=== PATIENT | male | born 1990 | race Caucasian/White ===

== ENCOUNTER 2023-10-09 17:12 | Outpatient (CLI) | payer OTHER | END 2023-10-09 17:13 | disposition critical access hospital (66) | LOC: EMS 17:12 | DX: F10.10 Alcohol abuse, uncomplicated (principal); R11.0 Nausea; R15.9 Full incontinence of feces; R00.0 Tachycardia, unspecified | CPT/HCPCS: A0425; A0427 ==

== ENCOUNTER 2023-10-09 17:29 | Inpatient (IN) | payer OTHER ==
--- NOTE | 2023-10-09 17:38 | ED Physician Documentation ---
History of Present Illness - Stated complaint Stated Complaint: DEHYDRATED - Chief complaint Chief Complaint: General - History obtained from History obtained from: Patient, EMS - History of Present Illness Pain level max: 0 Pain level now: 0 - Additonal information Additional information: 33-year-old male presents to the emergency department stating that he drank heavily last night. has a longstanding history of alcoholism. He is active [employer]. He states that the [employer] command is talked him about detox but he does not want to go to detox. He states he is planning on leaving the [employer] within the next 2 weeks. He is not suicidal or homicidal. No head injury. No neck or back pain. No abdominal pain. has a history of fatty liver. He states he drank "9 shots of bourbon last night". Patient states that he did throw up once last night but there is no blood in the emesis. He states that he has had intermittent bright red blood in his stool for several years. He has never had a colonoscopy or an endoscopy. No history of varices. He states that he has been told he has "fatty liver". Does not have any alcoholic liver disease that he Is aware of. Review of Systems Constitutional: denies: Fever, Chills Throat: denies: Sore throat Respiratory: denies: Cough GI: denies: Vomiting, Diarrhea Skin: denies: Rash Musculoskeletal: denies: Neck pain, Back pain Neurologic: denies: Headache PD PAST MEDICAL HISTORY - Past Medical History Past Medical History: Yes Psych: Depression, Anxiety - Present Medications Home Medications: Ambulatory Orders Medication Instructions Recorded Confirmed 147/Iron/Folic Acid 1 tab PO DAILY 10/09/23 10/09/23 [Ziphex Tablet] Venlafaxine [Effexor] 1 tab PO DAILY 10/09/23 10/09/23 - Allergies Allergies/Adverse Reactions: Allergies Allergy/AdvReac Type Severity Reaction Status Date / Time No Known Drug Allergies Allergy Verified 10/09/23 18:23 - Living Situation Living Situation: reports: With family Living Arrangement: reports: At home - Social History Does the pt drink ETOH?: Yes Does the pt have substance abuse?: No - Family History Family history: reports: Non contributory PD ED PE NORMAL - Vitals Vital signs reviewed: Yes - General General: Alert and oriented X 3, No acute distress, Other (Patient is pale appearing, bruises over the bilateral knees) - HEENT HEENT: Moist mucous membranes, Other (Scleral icterus, jaundiced) - Neck Neck: Supple, no meningeal sign - Cardiac Cardiac: Other (tachycardic) - Respiratory Respiratory: No respiratory distress, Clear bilaterally - Abdomen Abdomen: Soft, Non tender, Non distended - Rectal Rectal: Other (light brown stool, small amount of BRB) - Derm Derm: Warm and dry - Extremities Extremities: No edema, No calf tenderness / cord, Other (There is bruising on the bilateral thighs and knees. No tenderness over the ribs bilaterally. Normal range of motion of all major joints without pain.) - Neuro Neuro: Alert and oriented X 3, speech therapy assistant 2-12 intact, No motor deficit, No sensory deficit, Normal speech Eye Opening: Spontaneous Verbal: Oriented Results - Vitals Vitals: Vital Signs - 24 hr 10/09/23 10/09/23 10/09/23 17:34 19:28 20:20 Temperature 37.5 C 37.2 C Heart Rate 135 H 121 H Heart Rate [ 125 H Monitoring electrodes] Respiratory 18 18 18 Rate Blood Pressure 118/83 H 113/80 Blood Pressure [Right Brachial artery] O2 Saturation 99 99 97 10/09/23 10/09/23 10/09/23 20:38 20:39 21:00 Temperature 37.1 C 37.1 C Heart Rate 130 H Heart Rate [ 132 H 132 H Monitoring electrodes] Respiratory 16 16 25 H Rate Blood Pressure 121/69 Blood Pressure 121/99 H 121/99 H [Right Brachial artery] O2 Saturation 100 100 97 Oxygen O2 Source Room air - Labs Labs: Microbiology 10/09/23 18:30 Occult Blood - Final Stool Laboratory Tests 10/09/23 10/09/23 10/09/23 17:56 17:56 17:56 WBC 6.6 RBC 2.35 L Hgb 5.4 L* Hct 17.7 L* MCV 75.3 L MCH 23.0 L MCHC 30.5 L RDW 20.3 H Plt Count 66 L MPV 10.5 Neut # (Auto) 4.4 Lymph # (Auto) 1.0 L [place] # (Auto) 0.8 Eos # (Auto) 0.0 Baso # (Auto) 0.1 Absolute Nucleated RBC 0.02 Nucleated RBC % 0.3 Platelet Estimate DECREASED (<130,000) Platelet Morphology NORMAL APPEARANCE RBC Morph Micro Appear 2+ HYPOCHROMASIA PT 18.3 H INR 1.7 H Sodium 134 L Potassium 3.5 Chloride 100 L Carbon Dioxide 20 L Anion Gap 14.0 H BUN 10 Creatinine 0.6 Estimated GFR (MDRD) 155 Glucose 83 Calcium 7.1 L Phosphorus Magnesium Total Bilirubin 5.7 H AST 118 H ALT 21 Alkaline Phosphatase 235 H Total Protein 5.2 L Albumin 2.8 L Globulin 2.4 Albumin/Globulin Ratio 1.2 Lipase 231 H Urine Color Urine Clarity Urine pH Ur Specific [place] Urine Protein Urine Glucose (UA) Urine Ketones Urine Occult Blood Urine Nitrite Urine Bilirubin Urine Urobilinogen Ur Leukocyte Esterase Ur Microscopic Review Urine Culture Comments Urine Opiates Screen Ur Buprenorphine Scrn Ur Oxycodone Screen Urine Methadone Screen Ur Barbiturates Screen Ur Tricyclics Screen Ur Phencyclidine Scrn Ur Amphetamine Screen U Methamphetamines Scrn U Benzodiazepines Scrn Urine Cocaine Screen U Cannabinoids Screen Ur Drug Screen Comment Ethyl Alcohol 451.0 Blood Type Blood Type Recheck Antibody Screen Crossmatch IS Only 10/09/23 10/09/23 10/09/23 17:56 17:56 18:37 WBC RBC Hgb Hct MCV MCH MCHC RDW Plt Count MPV Neut # (Auto) Lymph # (Auto) [place] # (Auto) Eos # (Auto) Baso # (Auto) Absolute Nucleated RBC Nucleated RBC % Platelet Estimate Platelet Morphology RBC Morph Micro Appear PT INR Sodium Potassium Chloride Carbon Dioxide Anion Gap BUN Creatinine Estimated GFR (MDRD) Glucose Calcium Phosphorus 2.8 Magnesium 1.3 L Total Bilirubin AST ALT Alkaline Phosphatase Total Protein Albumin Globulin Albumin/Globulin Ratio Lipase Urine Color Urine Clarity Urine pH Ur Specific [place] Urine Protein Urine Glucose (UA) Urine Ketones Urine Occult Blood Urine Nitrite Urine Bilirubin Urine Urobilinogen Ur Leukocyte Esterase Ur Microscopic Review Urine Culture Comments Urine Opiates Screen Ur Buprenorphine Scrn Ur Oxycodone Screen Urine Methadone Screen Ur Barbiturates Screen Ur Tricyclics Screen Ur Phencyclidine Scrn Ur Amphetamine Screen U Methamphetamines Scrn U Benzodiazepines Scrn Urine Cocaine Screen U Cannabinoids Screen Ur Drug Screen Comment Ethyl Alcohol Blood Type O POSITIVE Blood Type Recheck O POSITIVE Antibody Screen NEGATIVE Crossmatch IS Only See Detail 10/09/23 20:40 WBC RBC Hgb Hct MCV MCH MCHC RDW Plt Count MPV Neut # (Auto) Lymph # (Auto) [place] # (Auto) Eos # (Auto) Baso # (Auto) Absolute Nucleated RBC Nucleated RBC % Platelet Estimate Platelet Morphology RBC Morph Micro Appear PT INR Sodium Potassium Chloride Carbon Dioxide Anion Gap BUN Creatinine Estimated GFR (MDRD) Glucose Calcium Phosphorus Magnesium Total Bilirubin AST ALT Alkaline Phosphatase Total Protein Albumin Globulin Albumin/Globulin Ratio Lipase Urine Color DARK YELLOW Urine Clarity CLEAR Urine pH 6.5 Ur Specific [place] 1.015 Urine Protein NEGATIVE Urine Glucose (UA) NEGATIVE Urine Ketones 40 H Urine Occult Blood NEGATIVE Urine Nitrite NEGATIVE Urine Bilirubin MODERATE H Urine Urobilinogen 4 H Ur Leukocyte Esterase NEGATIVE Ur Microscopic Review NOT INDICATED Urine Culture Comments NOT INDICATED Urine Opiates Screen NEGATIVE Ur Buprenorphine Scrn NEGATIVE Ur Oxycodone Screen NEGATIVE Urine Methadone Screen NEGATIVE Ur Barbiturates Screen NEGATIVE Ur Tricyclics Screen NEGATIVE Ur Phencyclidine Scrn NEGATIVE Ur Amphetamine Screen NEGATIVE U Methamphetamines Scrn NEGATIVE U Benzodiazepines Scrn NEGATIVE Urine Cocaine Screen NEGATIVE U Cannabinoids Screen NEGATIVE Ur Drug Screen Comment CUTOFF CONC BELOW: Ethyl Alcohol Blood Type Blood Type Recheck Antibody Screen Crossmatch IS Only - Rads (name of study) Head CT Relevant Findings:: Final report received, See rad report CT abdomen pelvis Relevant Findings:: Final report received, See rad report PD Medical Decision Making - ED course Complexity details: reviewed results, re-evaluated patient, considered differential, d/w patient, d/w supervisor home energy consultant ED course: Discussed case with general surgery, Dr. Schmitz, she will follow along, can plan to scope once he has been medically stable. Will need blood transfusions and monitoring and potential help through alcohol withdrawal prior to endoscopy/colonoscopy. Recommend admission to the hospitalist. Head CT does not show any acute abnormalities. Abdomen pelvis CT show abdominal varices but no esophageal varices. He has not had any bleeding over several hours in the emergency department. Does appear to have colitis on CT, this is consistent with his history of blood in the stool over several years. Unclear if the anemia is secondary to his alcoholism versus a colitis such as ulcerative colitis. No fevers. No chills. No recent travel. No antibiotics. Blood transfusion started in the emergency department. Discussed the case with the nighttime hospitalist who accepts. This document was made in part using voice recognition software. While efforts are made to proofread this document, sound alike and grammatical errors may occur. Departure - Departure Disposition: 66 [facility] DC/Xfer Clinical Impression: Alcoholism, Symptomatic anemia, Colitis Anemia Qualifiers: Anemia type: unspecified type Qualified Code(s): D64.9 - Anemia, unspecified Ascites Qualifiers: Ascites type: other type Qualified Code(s): R18.8 - Other ascites Condition: Stable Discharge Date/Time: 10/09/23 21:45
[2023-10-09 18:07] LABS: BASOPHILS # (AUTO) 0.1 10^3/uL (0.0-0.1); BASOPHILS % (AUTO) 1.4 %; LYMPHOCYTES % (AUTO) 15.1 %; MEAN CORPUSCULAR HGB CONC 30.5 g/dL (32.0-36.0); MEAN CORPUSCULAR VOLUME 75.3 fL (80.0-94.0); MEAN PLATELET VOLUME 10.5 fL (7.4-11.4); MONOCYTES # (AUTO) 0.8 10^3/uL (0.0-1.0); MONOCYTES % (AUTO) 12.3 %; NEUTROPHILS # (AUTO) 4.4 10^3/uL (1.5-6.6); NEUTROPHILS % (AUTO) 66.8 %; NRBC ABSOLUTE COUNT (AUTO) 0.02 x10^3/uL; NUCLEATED RED BLOOD CELLS AUTO 0.3 /100WBC; PLT - PLATELET COUNT 66 10^3/uL (130-450); RED BLOOD COUNT 2.35 10^6/uL (4.70-6.10); RED CELL DISTRIBUTION WIDTH 20.3 % (12.0-15.0); WHITE BLOOD COUNT 6.6 x10^3/uL (4.8-10.8)
[2023-10-09 18:09] LABS: HCT - HEMATOCRIT 17.7 % (42.0-52.0); HGB - HEMOGLOBIN 5.4 g/dL (14.0-18.0)
[2023-10-09 18:20] LABS: ALBUMIN 2.8 g/dL (3.2-5.5); ALBUMIN/GLOBULIN RATIO 1.2 (1.0-2.2); BILIRUBIN,TOTAL 5.7 mg/dL (0.2-1.0); CALCIUM 7.1 mg/dL (8.5-10.3); CREATININE 0.6 mg/dL (0.6-1.3); POTASSIUM 3.5 mmol/L (3.5-4.5); TOTAL PROTEIN 5.2 g/dL (6.4-8.9)
[2023-10-09 18:23] LABS: INR 1.7 (0.8-1.2); PT - PROTHROMBIN TIME 18.3 secs (9.9-12.6)
[2023-10-09] MEDS: SODIUM CHLORIDE 0.9% 1,000 ML IV STA (18:24)
[2023-10-09] MEDS: PANTOPRAZOLE 40 MG VIAL IVP STA (18:31)
[2023-10-09] MEDS: ONDANSETRON 4 MG/2 ML VIAL IVP STA (18:31)
[2023-10-09 19:01] LABS: PLATELET ESTIMATE, MANUAL DECREASED (<130,000) (NORMAL); PLATELET MORPHOLOGY NORMAL APPEARANCE (NORMAL)
[2023-10-09] MEDS ORDERED: iohexoL-300 100 ML VIAL ONE (19:20)
[2023-10-09] MEDS ORDERED: MAGNESIUM SULFATE 1 GM/2 ML VIAL ONE (19:26)
[2023-10-09] MEDS ORDERED: THIAMINE 100 MG/1 ML 2 ML MDV ONE (19:26)
[2023-10-09] MEDS ORDERED: FOLIC ACID 5 MG/1 ML 10ML MDV ONE (19:26)
[2023-10-09 19:31] LABS: MAGNESIUM 1.3 mg/dL (1.7-2.3); PHOSPHORUS 2.8 mg/dL (2.5-5.0)
--- NOTE | 2023-10-09 19:37 | CT Report ---
PROCEDURE: Head WO INDICATIONS: fall TECHNIQUE: Noncontrast 4.5 mm thick angled axial sections acquired from the foramen magnum to the vertex. For r adiation dose reduction, the following was used: automated exposure control, adjustment of mA and/or kV according to patient size. COMPARISON: None. FINDINGS: Image quality: Excellent. CSF spaces: Basal cisterns are patent. No extra-axial fluid collections. Ventricles are normal in size and shape. Brain: No midline shift. No intracranial masses or hemorrhage. Lynn-white matter interface is norm al. Skull and face: Calvarium and visualized facial bones are intact, without suspicious lesions. Sinuses: Mild bilateral maxillary sinus mucosal thickening. Other visualized paranasal sinuses and ma stoids are clear. IMPRESSION: No acute intracranial pathology. No acute calvarial fracture. Reviewed by: Bob Pressley MD on 10/09/2023 7:35 PM PDT Approved by: Bob Pressley MD on 10/09/2023 7:35 PM PDT Station ID: [id number]
[2023-10-09] MEDS: PHYTONADIONE 10 MG/ML AMP SUBQ STA (19:38)
[2023-10-09] MEDS: THIAMINE INJ 100 MG, MAGNESIUM SULFATE 2 GM, MULTIVITAMIN 10 ML, FOLIC ACID INJ 1 MG in... IV STA (19:40)
[2023-10-09] MEDS: iohexoL-300 100 ML VIAL IVP ONE (19:41)
[2023-10-09] MEDS: METOCLOPRAMIDE 10 MG/2 ML VIAL IVP STA (20:24)
--- NOTE | 2023-10-09 20:45 | CT Report ---
PROCEDURE: Abdomen/Pelvis W INDICATIONS: epigastric abd pain CONTRAST: 100ml [id number] TECHNIQUE: After the administration of intravenous contrast, a CT scan of the abdomen and pelvis was performed. Images were recorded and evaluated at appropriate window settings. Reformats: coronal and sagittal. F or radiation dose reduction, the following was used: automated exposure control, adjustment of mA and /or kV according to patient size. COMPARISON: None. FINDINGS: Image quality: Diagnostic. Lower chest: There is a small right pleural effusion with associated compressive atelectasis. Left giovanni ng is clear. Small hiatal hernia. Heart size is normal. Age-indeterminate nondisplaced fracture of th e posterior right 10th rib. Liver: No solid mass. Moderate diffuse hepatic steatosis. Gallbladder: Mild gallbladder wall distention. Small radiodense gallstone noted. There is fluid withi n the gallbladder fossa likely extension of adjacent ascites. Biliary tree: No intrahepatic or extrahepatic dilation, accounting for age. Spleen: No splenomegaly. There is heterogeneous appearance of the spleen near the anterior, superior margin as well as the posterior midportion slightly more than expected given adjacent osseous structu res. Given history of fall, splenic trauma not excluded. No evidence for active extravasation. Surrou nding ascites measures simple fluid attenuation. Pancreas: No pancreatic ductal dilation. No evidence for traumatic injury. Adrenals: No adrenal nodule. Kidneys and ureters: No hydronephrosis. No renal cystic lesion which requires follow up. No solid mas s. Stomach, bowel and peritoneum: No gastric or small bowel dilation. There is circumferential wall thic kening involving the ascending, transverse, and proximal descending colon. The sigmoid colon and rect um appeared normal in wall thickness despite similar degree of distention. No evidence for small shelli l obstruction. Moderate volume ascites scattered throughout the abdomen measuring simple fluid attenu ation. Lymph nodes: No central or retroperitoneal adenopathy. Vessels: No infrarenal aortic aneurysm. Patent portal vein. Multiples periportal and periumbilical va rices are present. PELVIS Reproductive organs: Unremarkable. Bladder: No abnormal wall thickening, accounting for underdistention. Pelvic lymph nodes: No pelvic adenopathy by size criteria. Bones: No aggressive osseous abnormality. No acute compression fractures. Other: No significant ventral or inguinal hernia. Diffuse anasarca. IMPRESSION: 1. Moderate hepatic steatosis. 2. Moderate volume ascites scattered throughout the abdomen. This measures simple fluid attenuation. 3. Multiple abdominal varices. No other findings for portal hypertension. 4. Distended gallbladder with wall thickening and gallstone. Recommend clinical correlation for acute cholecystitis. 5. Areas of heterogeneity involving the anterior, superior margin of the spleen as well as the sales promoter ior mid spleen suspicious for possible low-grade splenic laceration given history of trauma. No evide nce to suggest active extravasation as the surrounding ascites measures simple fluid attenuation. 6. Circumferential wall thickening of the ascending, transverse and proximal descending colon suggest naveen of colitis either infectious or inflammatory etiology. 7. Small right pleural effusion. Age-indeterminate posterior right 10th rib fracture. 8. Other chronic findings as above. Findings were discussed with Dr. Patel of the emergency department at 2040 hrs. Reviewed by: Bob Pressley MD on 10/09/2023 8:44 PM PDT Approved by: Bob Pressley MD on 10/09/2023 8:44 PM PDT Station ID: [id number]
[2023-10-09 20:57] LABS: BILIRUBIN,URINE MODERATE (NEGATIVE); GLUCOSE, URINE (UA) NEGATIVE (NEGATIVE); KETONES,URINE (UA) 40 mg/dL (NEGATIVE); LEUKOCYTE ESTERASE, URINE NEGATIVE (NEGATIVE); NITRITE,URINE NEGATIVE (NEGATIVE); OCCULT BLOOD,URINE NEGATIVE (NEGATIVE); PH,URINE 6.5 PH (5.0-7.5); PROTEIN,URINE NEGATIVE (NEGATIVE); UROBILINOGEN,URINE 4 E.U./dL (NORMAL)
[2023-10-09 21:00] LABS: CLARITY,URINE CLEAR (CLEAR)
[2023-10-09 21:10] LABS: AMPHETAMINE SCREEN,URINE NEGATIVE (NEGATIVE); BARBITURATE SCREEN,UR NEGATIVE (NEGATIVE); BENZODIAZEPINES SCREEN, URINE NEGATIVE (NEGATIVE); BUPRENORPHINE SCREEN, URINE NEGATIVE (NEGATIVE); COCAINE SCREEN URINE NEGATIVE (NEGATIVE); METHADONE SCREEN, URINE NEGATIVE (NEGATIVE); METHAMPHETAMINES SCREEN, URINE NEGATIVE (NEGATIVE); OPIATE SCREEN, URINE NEGATIVE (NEGATIVE); OXYCODONE SCREEN, URINE NEGATIVE (NEGATIVE); THC CANNABINOID SCREEN, URINE NEGATIVE (NEGATIVE); TRICYCLIC ANTIDEPRESSANT,URINE NEGATIVE (NEGATIVE)
[2023-10-09] MEDS ORDERED: ACETAMINOPHEN 325 MG TABLET PO PRN (21:16)
[2023-10-09] MEDS ORDERED: SODIUM CHLORIDE FLUSH 0.9% 10 ML SYRINGE IVP PRN (21:16)
[2023-10-09] MEDS ORDERED: diazePAM INJ 5 MG/ML SYRINGE IVP PRN (21:22)
[2023-10-09] MEDS ORDERED: diazePAM 5 MG TABLET PO PRN (21:22)
--- NOTE | 2023-10-09 21:53 | HISTORY & PHYSICAL EXAMINATION ---
Chief Complaint - Chief Complaint Chief Complaint: syncope History of Present Illness - Admitted From Admitted From:: ED - History of Present Illness HPI Comment/Other: Mr. Olea is a 33yo gentleman with history of PTSD, alcoholism, and hemorrhoids that presented to the ED for syncope in the setting of alcohol i ntoxication. He explained that on the day of presentation he had been binge drinking. He passed out, which was witnessed by his commanding officer and advised to come to the ED for evaluation and to sober up. During his evaluation, he was clinical mildly intoxicated and was able to remain alert and participate during his evaluation. His ETOH level was >400. Lab work revealed severe anemia of 5.4. Plts 60, INR 1.5. CT head was negative. CT abdomen was consistent with liver cirrhosis, abdominal varices, and colitis. he did not have evidence of esophageal varices or active bleeding. He explained that he has BRBPR due to his hemorrhoids. he denies any nausea, hemetemesis, or bloody bowel movements on the day of presentation. Dr. Schmitz, surgeon oncall, was consulted by ED physician and agreed to follow patient during this admission. During my evaluation, patient was alert and oriented. he did not display any clinical signs of ETOH withdrawal. BP 120/70, HR 115.I performed this evaluation using real time teleheatlh tools including live video. I obtained the patient's informed consent to proceed with this visit via the tele-health modality. History - Past Medical History Psych: reports: Depression, Anxiety MRSA Hx?: No - Family & Social History Living arrangement: At home Living Situation: With family Meds/Allgy - Home Medications Home Medications: Ambulatory Orders Medication Instructions Recorded Confirmed 147/Iron/Folic Acid 1 tab PO DAILY 10/09/23 10/09/23 [Ziphex Tablet] Venlafaxine [Effexor] 1 tab PO DAILY 10/09/23 10/09/23 - Allergies Allergies/Adverse Reactions: Allergies Allergy/AdvReac Type Severity Reaction Status Date / Time No Known Drug Allergies Allergy Verified 10/09/23 18:23 Review of Systems - All Other Systems All Other Systems: reports: Reviewed and negative Exam - Vital Signs Reviewed Vital Signs: Yes Vital Signs: Vital Signs x48h Temp Pulse Pulse Resp BP BP Pulse Ox 10/09/23 21:19 37 C 124 H 18 115/62 97 10/09/23 21:00 130 H 25 H 121/69 97 10/09/23 20:39 37.1 C 132 H 16 121/99 H 100 10/09/23 20:38 37.1 C 132 H 16 121/99 H 100 10/09/23 20:20 37.2 C 125 H 18 97 10/09/23 19:28 121 H 18 113/80 99 10/09/23 17:34 37.5 C 135 H 18 118/83 H 99 - Physical Exam General Appearance: positive: No acute distress, Alert Eyes Bilateral: positive: Normal inspection, PERRL Cardiovascular: positive: Tachycardia Abdomen: positive: Non-tender, Nml bowel sounds, Other (mild distension) Skin: positive: Color nml, No rash, Warm, Dry, Pallor Extremities: positive: Non-tender, Full ROM, Nml appearance Neurologic/Psychiatric: positive: Oriented x3, Mood/affect nml Conclusion/Plan - Problem List (1) Symptomatic anemia Conclusion/Plan: - etiology uncertain, acute blood loss due to hemorrhoids, ulcers or colitis suspected;as well as lack of production due to iron deficiency and alcoholism -type and screen, transfuse prbc as needed, goal hgb 7.0 or greater. FFP if more than 4 units prbc are required - iron studies pending -close monitoring with serial vitals and continuos telemetry monitoring -trend H and H, plts and coags as needed to adjust therapy appropriately -Surgery consulted, plan to proceed with EGD and colonoscopy once clinically stable. 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 Conclusion/Plan: -CT imaging reviewed independently -monitor liver enzymes and coags -EGD and colonoscopy pending -follow up with GI as outpatient (3) Alcoholism Conclusion/Plan: -CIWA monitoring q4h -prn ativan per withdrawal protocol initiated -monitor electrolytes and replace as needed -thiamin, b12 and folate replacement as needed -case management to provide community resources for substance abuse support programs to aid in patient's sobriety - Lab Results Fish Bones: 10/09/23 17:56 10/09/23 17:56 Core Measures - Anticipated LOS I expect patient to be DC'd or transferred within 96 hours.: Yes - DVT/VTE - Prophylaxis VTE/DVT Device ordered at admit?: Yes VTE/DVT Prophylaxis med ordered at admit?: No Not Ordered - Medical Reason: Contraindicated (bleeding with symptomatic anemia) Telemedicine Consult Details - Provider Location & Consult Time Telemedicine consultation conducted via videoconferencing?: Yes
[2023-10-09] MEDS: SODIUM CHLORIDE FLUSH 0.9% 10 ML SYRINGE IVP SCH (22:15)
[2023-10-09] MEDS: SODIUM CHLORIDE 0.9% 1,000 ML IV SCH (22:15)
[2023-10-10 00:26] LABS: HCT - HEMATOCRIT 20.9 % (42.0-52.0)
[2023-10-10 00:33] LABS: HGB - HEMOGLOBIN 6.4 g/dL (14.0-18.0)
[2023-10-10] MEDS: PROCHLORPERAZINE 10 MG/2 ML VIAL IVP PRN (01:14)
[2023-10-10 05:58] LABS: BASOPHILS # (AUTO) 0.1 10^3/uL (0.0-0.1); BASOPHILS % (AUTO) 1.4 %; EOSINOPHILS % (AUTO) 0.2 %; LYMPHOCYTES # (AUTO) 1.1 10^3/uL (1.5-3.5); LYMPHOCYTES % (AUTO) 21.5 %; MEAN CORPUSCULAR HEMOGLOBIN 24.1 pg (27.0-31.0); MEAN CORPUSCULAR HGB CONC 30.5 g/dL (32.0-36.0); MEAN CORPUSCULAR VOLUME 78.9 fL (80.0-94.0); MONOCYTES # (AUTO) 0.5 10^3/uL (0.0-1.0); MONOCYTES % (AUTO) 10.5 %; NEUTROPHILS # (AUTO) 3.3 10^3/uL (1.5-6.6); NEUTROPHILS % (AUTO) 64.4 %; PLT - PLATELET COUNT 36 10^3/uL (130-450); RED BLOOD COUNT 2.66 10^6/uL (4.70-6.10); RED CELL DISTRIBUTION WIDTH 21.3 % (12.0-15.0); WHITE BLOOD COUNT 5.1 x10^3/uL (4.8-10.8)
[2023-10-10 06:19] LABS: ALBUMIN 2.8 g/dL (3.2-5.5); ALBUMIN/GLOBULIN RATIO 1.1 (1.0-2.2); BILIRUBIN,TOTAL 7.7 mg/dL (0.2-1.0); CALCIUM 6.7 mg/dL (8.5-10.3); CREATININE 0.5 mg/dL (0.6-1.3); MAGNESIUM 1.4 mg/dL (1.7-2.3); POTASSIUM 3.5 mmol/L (3.5-4.5); TOTAL PROTEIN 5.4 g/dL (6.4-8.9)
[2023-10-10 06:24] LABS: INR 1.6 (0.8-1.2); PT - PROTHROMBIN TIME 17.4 secs (9.9-12.6)
[2023-10-10 06:25] LABS: HGB - HEMOGLOBIN 6.4 g/dL (14.0-18.0); SLIDE REVIEW? Indicated
[2023-10-10 06:46] LABS: PLATELET ESTIMATE, MANUAL DECREASED (<130,000) (NORMAL)
[2023-10-10 06:51] LABS: % IRON SATURATION 64 % (20-50); IRON 166 ug/dL (50-212); TOTAL IRON BINDING CAPACITY 259 ug/dL (250-450); TRANSFERRIN 185 mg/dL (203-362)
--- NOTE | 2023-10-10 07:28 | CONSULTATION NOTE ---
Referring Provider Name of Referring Provider:: Mary Carmen Shoemaker) Consult Date: 10/10/23 History of Present Illness - Admitted From Admitted From:: ED - History Obtained From Records Reviewed: yes History obtained from: ED provider, primary team, patient Exam Limitations: patient is drowsy, only answers some questions - History of Present Illness HPI Comment/Other: Patient brought in by concerned officer who found the patient with loose stool/incontinence outside. The patient states he is tired today and denies abdominal pain, nausea, vomiting. He denies any regular use of NSAID medications, is not on blood thinners, and does not have GERD symptoms. He does endorse small amounts of bright red blood on his stool at times which he attributes to hemorrhoids. He does drink alcohol and had a markedly elevated alcohol level at the time of admission. Patient found to have cirrhosis with ascites and at least periumbilical varicies. He is also markedly anemic. For concern for possible GI bleed, I am consulted. Patient was noted to have brown, non bloody appearing stool in ED. He has not vomited since admission. He is active duty in the [employer]. History - Past Medical History Psych: reports: Depression, Anxiety MRSA Hx?: No - Family & Social History Living arrangement: At home Living Situation: With family Social History Notes: Patient active duty in [employer]. Meds/Allgy - Home Medications Home Medications: Ambulatory Orders Medication Instructions Recorded Confirmed 147/Iron/Folic Acid 1 tab PO DAILY 10/09/23 10/09/23 [Ziphex Tablet] Fexofenadine HCl 60 mg PO DAILY PRN 10/10/23 10/10/23 Fluticasone [Flonase] 2 sprays KEENAN DAILY PRN 10/10/23 10/10/23 Pantoprazole [Protonix] 40 mg PO QDAC 10/10/23 10/10/23 Venlafaxine ER [Effexor ER] 75 mg PO DAILY 10/10/23 10/10/23 - Allergies Allergies/Adverse Reactions: Allergies Allergy/AdvReac Type Severity Reaction Status Date / Time No Known Drug Allergies Allergy Verified 10/09/23 18:23 Review of Systems - Constitutional Constitutional: reports: Other (limted by patient's ability to participate in conversation.) Exam - Vital Signs Vital Signs: Vital Signs x48h Temp Pulse Resp BP Pulse Ox 10/10/23 04:45 37.2 C 116 H 16 121/71 94 10/10/23 01:45 37 C 119 H 17 117/74 96 10/10/23 01:44 37 C 119 H 17 117/74 96 10/10/23 01:27 37.2 C 119 H 16 115/67 94 10/10/23 01:15 37.2 C 121 H 16 103/62 96 10/09/23 23:23 37.1 C 116 H 18 106/59 L 97 - Physical Exam Comments/Other: GEN: No acute distress, appears stated age, alert and oriented HEENT: NCAT, MMM, EOMI, +jaundice and icterus NEURO: CN II-XII grossly intact, no obvious focal deficits CV: tachycardia PULM: non labored, on RA ABD: soft, non tender, +distension and fluid wave consistent with ascites, no rebound or guarding CIRCULATORY: no clubbing, cyanosis, or edema SKIN: no lesions appreciated LYMPH: no obvious lymphadenopathy MSK: 4/4 strength in all extremities PSYCH: patient is drowsy Conclusion and Plan - Lab Results Microbiology Results 10/09/23 18:30 Stool Occult Blood - Final Laboratory Results 10/10/23 05:39: Iron 166, TIBC 259, % Saturation 64 H, Transferrin 185 L 10/10/23 05:39: Sodium 132 L, Potassium 3.5, Chloride 101, Carbon Dioxide 19 L, Anion Gap 12.0, BUN 7, Creatinine 0.5 L, Estimated GFR (MDRD) 192, Glucose 65 L, Calcium 6.7 L, Magnesium 1.4 L, Total Bilirubin 7.7 H, AST 113 H, ALT 21, Alkaline Phosphatase 218 H, Total Protein 5.4 L, Albumin 2.8 L, Globulin 2.6, Albumin/Globulin Ratio 1.1 10/10/23 05:39: PT 17.4 H, INR 1.6 H 10/10/23 05:39: WBC 5.1, RBC 2.66 L, Hgb 6.4 L*, Hct 21.0 L, MCV 78.9 L, MCH 24.1 L, MCHC 30.5 L, RDW 21.3 H, Plt Count 36 L, Neut # (Auto) 3.3, Lymph # (Auto) 1.1 L, Jones # (Auto) 0.5, Eos # (Auto) 0.0, Baso # (Auto) 0.1, Absolute Nucleated RBC 0.00, Nucleated RBC % 0.0, Manual Slide Review Indicated, Platelet Estimate DECREASED (<130,000), RBC Morph Micro Appear 1+ OVALOCYTES 10/10/23 00:21: Hgb 6.4 L*, Hct 20.9 L 10/09/23 20:40: Urine Color DARK YELLOW, Urine Clarity CLEAR, Urine pH 6.5, Ur Specific [place] 1.015, Urine Protein NEGATIVE, Urine Glucose (UA) NEGATIVE, Urine Ketones 40 H, Urine Occult Blood NEGATIVE, Urine Nitrite NEGATIVE, Urine Bilirubin MODERATE H, Urine Urobilinogen 4 H, Ur Leukocyte Esterase NEGATIVE, Ur Microscopic Review NOT INDICATED, Urine Culture Comments NOT INDICATED, Urine Opiates Screen NEGATIVE, Ur Buprenorphine Scrn NEGATIVE, Ur Oxycodone Screen NEGATIVE, Urine Methadone Screen NEGATIVE, Ur Barbiturates Screen NEGATIVE, Ur Tricyclics Screen NEGATIVE, Ur Phencyclidine Scrn NEGATIVE, Ur Amphetamine Screen NEGATIVE, U Methamphetamines Scrn NEGATIVE, U Benzodiazepines Scrn NEGATIVE, Urine Cocaine Screen NEGATIVE, U Cannabinoids Screen NEGATIVE, Ur Drug Screen Comment CUTOFF CONC BELOW: 10/09/23 18:37: Blood Type O POSITIVE, Antibody Screen NEGATIVE, Crossmatch IS Only See Detail 10/09/23 17:56: Phosphorus 2.8, Magnesium 1.3 L 10/09/23 17:56: Blood Type Recheck O POSITIVE 10/09/23 17:56: Sodium 134 L, Potassium 3.5, Chloride 100 L, Carbon Dioxide 20 L, Anion Gap 14.0 H, BUN 10, Creatinine 0.6, Estimated GFR (MDRD) 155, Glucose 83, Calcium 7.1 L, Total Bilirubin 5.7 H, AST 118 H, ALT 21, Alkaline Phosphatase 235 H, Total Protein 5.2 L, Albumin 2.8 L, Globulin 2.4, Albumin/Globulin Ratio 1.2, Lipase 231 H, Ethyl Alcohol 451.0 10/09/23 17:56: PT 18.3 H, INR 1.7 H 10/09/23 17:56: WBC 6.6, RBC 2.35 L, Hgb 5.4 L*, Hct 17.7 L*, MCV 75.3 L, MCH 23.0 L, MCHC 30.5 L, RDW 20.3 H, Plt Count 66 L, MPV 10.5, Neut # (Auto) 4.4, Lymph # (Auto) 1.0 L, Jones # (Auto) 0.8, Eos # (Auto) 0.0, Baso # (Auto) 0.1, Absolute Nucleated RBC 0.02, Nucleated RBC % 0.3, Platelet Estimate DECREASED (<130,000), Platelet Morphology NORMAL APPEARANCE, RBC Morph Micro Appear 2+ HYPOCHROMASIA - Diagnostic Imaging Results Diagnostic Imaging Results: positive: Final report reviewed, Read independently Diagnostic Imaging Results Comments: +ascites, +periumbilical varices, +cirrhosis - Consultation Note Consultation Note: 33 y/o M with severe alcoholic liver disease, admitted with severe anemia, thrombocytopenia. 1. anemia - he may have some contribution from hemorrhoids, though his alcohol use disorder could also be contributing to his anemia - he has a benign abdominal exam and is not actively bleeding - I will remain available for endoscopy if needed, but suspect it will be low yield for fixable causes - he likely has eosphageal varices, which we cannot band at this facility. Recommend prophylaxis for variceal bleeding - agree with transfusion of blood products as needed 2. alcohol use disorder and liver disease - these appear to be new diagnoses - he will benefit from consultation with hepatology and should stop drinking th ough he is at risk for significant withdrawal symptoms given high ethanol level at time of admission. 3. depression, anxiety - ok to continue home meds from surgery standpoint. No plan for endoscopy at this time, but available if plan changes. Thank you for consulting me in the care of this patient.
[2023-10-10] MEDS: VENLAFAXINE 37.5 MG TABLET PO SCH (08:23)
[2023-10-10] MEDS: chlordiazePOXIDE 25 MG CAPSULE PO SCH (08:23)
[2023-10-10] MEDS: PANTOPRAZOLE 40 MG VIAL IV SCH (08:24)
[2023-10-10] MEDS: PIPERACILLIN/TAZOBACTAM 3.375 GM in SODIUM CHLORIDE 0.9% MINIBAG 100 ML IV SCH (08:25)
[2023-10-10] MEDS: NICOTINE 14 MG PATCH TOP SCH (08:25)
[2023-10-10] MEDS: MAGNESIUM SULFATE 2 GRAM 2 GM/50 ML BAG IV ONE (08:25)
[2023-10-10] MEDS ORDERED: PANTOPRAZOLE 40 MG VIAL IV SCH (09:00)
[2023-10-10] MEDS: OCTREOTIDE 500 MCG in SODIUM CHLORIDE 0.9% 100ML 99 ML IV SCH (09:48)
[2023-10-10] MEDS: LORazepam 2 MG/ML VIAL IVP PRN (10:18)
[2023-10-10] MEDS: THIAMINE INJ 100 MG, FOLIC ACID INJ 1 MG in SODIUM CHLORIDE 0.9% 1,000 ML IV SCH (10:40)
[2023-10-10] MEDS: methylPREDNISolone 4 MG TABLET PO SCH (10:59)
--- NOTE | 2023-10-10 11:34 | PHARMACY PROGRESS NOTE ---
- Best Possible Medication History Admit Date and Time: 10/09/232115 Processed by: Pharmacy Medications reviewed in ED?: Yes Medication History completed: Yes Patient Interview: Completed Secondary Source(s): Insurance records Patient states he has stopped taking naltrexone As the person ultimately responsible for medication therapy, providers are able to order a medication from an existing home medication list in [facility] via the "Reconcile Routine" prior to Confirmation of that medication by air support operations operator. Such practice is discouraged except when the physician, in their clinical judgment, deems that a medical need exists for a medication without regard to previous use.
--- NOTE | 2023-10-10 11:38 | PROVIDER PROGRESS NOTE ---
Progress Note SUBJ This is a 33M with a history of alcoholism, hemorrhoids, and PTSD who was admitted for alcohol withdrawal and symptomatic anemia. Patient also endorses a history of "fatty liver". He states that he has been drinking heavily since age 21, with his average daily consumption being a "handle" (1.75 L) of liquor every two days. He reports quitting two months ago after noticing yellowing of his skin. He experiences withdrawal symptoms (nausea, tremors, sweating, PORTER, etc) within 48 hours of cessation/reduction of alcohol. He reports having a seizure two years ago and suspects it was due to alcohol withdrawal. Prior to ED arrival, he consumed 3/4ths of a 1.75L bottle of bourbon before having a syncopal episode. He denies any seizures, hallucinations, vomiting, hematemesis, bloody stools or melena. He is currently experiencing weakness, dizziness, fatigue, headache, nausea, diarrhea, and abdominal pain. His symptoms have not improved s/p PRBC and protonix. OBJ Vitals: BP 121/71, HR 116H PE: * General: Pt uncomfortable, appears ill. * HEENT: Icterus present, scattered purpura on face * Cardiac: Tachycardia, regular rhythm. No gallops or rubs. * Pulmonary: CTAB * Abdomen: Distension. Bulging flanks. Flank dullness, Hepatomegaly. Diffuse tenderness. * Skin: jaundice, pallor, scattered spider angiomas on chest, scattered bruising and purpura. Labs: * CMP: Na 132, K 3.5, Cl 101, Co2 19, Anion gap 12, BUN 7, Creatinine 0.5L, Ca 6.7, Mg 1.4, Bilirubin 7.7, AST 113, ALT 21, ALP 218, Protein 5.4, Albumin 2.8 * CBC: WBC 5.1, RBC 2.66, Hgb 6.4, Hct 21, MCH 24.1, MCHC 30.5, RDW 21.3, Plt 36 * Coag Panel: PT 17.4, INR 1.6H * Toxicology: Ethyl Alc 451.0 Imaging: * CT: "Moderate hepatic steatosis, moderate volume ascites scattered throughout the abdomen, multiple abdominal varices, distended gallbladder with wall thickening and gallstone, posterior mid spleen suspicious for possible low-g rade splenic laceration, circumferential wall thickening for the ascending, transverse, and proximal descending colon suggestive of colitis, small right pleural effusion" A&P #Anemia * Unsure etiology, ddx include bleeding hemorrhoids, GI bleed/ulcer, decreased production due to alcoholism * Hgb 5.4, improved to 6.4 after two units of PRBC in ED. Will give 1 more unit of PRBC and 2 units of FFP, continue to trend H&H #Alcoholic hepatitis #Alcoholic cirrhosis * MELD Score: 22, MDF score: 37.1. Based on MDF score, would benefit from course of steroids. Will start methylprednisolone 40mg x 4 weeks with gradual taper managed by [facility] * Concerned for bleeding esophageal varices, will start octreotide. * Will initiate transfer to [facility] for further management #Alcohol withdrawal * Currently on Valium and Ativan prn and chlordiazepoxide, will continue to monitor * Continue thiamin, B12, and folate replacement prn #Ascites * Will start IV Zosyn for SBP prophylaxis #Thrombocytosis * Likely due to bone marrow suppression secondary to alcoholism #Splenic laceration * Hemodynamically stable, will continue to monitor
--- NOTE | 2023-10-10 13:23 | DISCHARGE SUMMARY ---
"Discharge Summary Admit Date: 10/09/23 Discharge Date: 10/10/23 Discharging Provider: Darrin Molina Code Status: Attempt Resuscitation Condition at Discharge: Stable Discharge Disposition: 02 Transfer Acute Care Hosp Discharge Facility Name: [facility] History of Present Illness: Mr. Olea is a 33yo gentleman with history of PTSD, alcoholism, and hemo rrhoids that presented to the ED for syncope in the setting of alcohol intoxication. He explained that on the day of presentation he had been binge drinking. He passed out, which was witnessed by his commanding officer and advised to come to the ED for evaluation and to sober up. During his evaluation, he was clinical mildly intoxicated and was able to remain alert and participate during his evaluation. His ETOH level was >400. Lab work revealed severe anemia of 5.4. Plts 60, INR 1.5. CT head was negative. CT abdomen was consistent with liver cirrhosis, abdominal varices, and colitis. he did not have evidence of esophageal varices or active bleeding. He explained that he has BRBPR due to his hemorrhoids. he denies any nausea, hemetemesis, or bloody bowel movements on the day of presentation. Dr. Schmitz, surgeon oncall, was consulted by ED physician and agreed to follow patient during this admission. During my evaluation, patient was alert and oriented. he did not display any clinical signs of ETOH withdrawal. BP 120/70, HR 115.I performed this evaluation using real time teleheatlh tools including live video. I obtained the patient's informed consent to proceed with this visit via the tele-health modality. - CONSULTS | PROCEDURES Consultations: General surgery - HOSPITAL COURSE Hospital Course: Patient is a 33-year-old male who presented to the ED due to alcohol intoxication from binge drinking. Upon presentation he was noted to have a hemoglobin of 5.4. 2 units of packed red blood cells were ordered and transfused and his hemoglobin increased to 6.4. A CT abdomen/pelvis was performed showing evidence of moderate hepatic steatosis as well as a moderate volume of ascites in the abdomen. Patient had abdominal varices as well as a distended gallbladder concerning for acute cola cystitis. Patient also had circumferential wall thickening of the ascending and transverse proximal descen ding colon suggestive of colitis of either infectious or inflammatory etiology. Patient was otherwise hemodynamically stable, he was admitted to the ICU for further evaluation management. Upon evaluation in the morning, an additional unit of packed red blood cells was ordered along with 2 units of FFP and 2 units of platelets. An FOBT was performed which was positive however patient did not appear to be actively bleeding. Patient an INR of 1.6. Patient was started on IV octreotide and IV pantoprazole 40 mg twice daily . He was started on a CIWA protocol with Ativan as well as Librium 25 mg 4 times daily. Patient endorsed a prior seizure 2 years ago but also stated he had never withdrawn from alcohol previously. Patient was started on IV Zosyn for SBP prophylaxis as well as for his colitis and suspected acute cholecystitis. He did not endorse any right upper quadrant abdominal pain nor did he have a elevated white blood cell count. He was also started on methylprednisolone 32 mg daily due to an elevated [facility] discriminant factor and concern for alcoholic hepatitis. As the patient never been evaluated by gastroenterology, the case was discussed with [facility] for potential transfer. He was accepted and is pending transfer to higher level of care. - ALLERGIES Allergies/Adverse Reactions: Allergies Allergy/AdvReac Type Severity Reaction Status Date / Time No Known Drug Allergies Allergy Verified 10/09/23 18:23 - MEDICATIONS Home Medications: Ambulatory Orders Medication Instructions Recorded Confirmed 147/Iron/Folic Acid 1 tab PO DAILY 10/09/23 10/09/23 [Ziphex Tablet] Fexofenadine HCl 60 mg PO DAILY PRN 10/10/23 10/10/23 Fluticasone [Flonase] 2 sprays KEENAN DAILY PRN 10/10/23 10/10/23 Pantoprazole [Protonix] 40 mg PO QDAC 10/10/23 10/10/23 Venlafaxine ER [Effexor ER] 75 mg PO DAILY 10/10/23 10/10/23 - PHYSICAL EXAM AT DISCHARGE General Appearance: positive: Alert, Mild distress Respiratory: positive: Chest non-tender, No respiratory distress, Breath sounds nml Cardiovascular: positive: No murmur, No gallop, Tachycardia Abdomen: positive: Other (Abdominal distension.) Neurologic/Psychiatric: positive: Oriented x3, CN's nml (2-12) - LABS Result Diagrams: 10/10/23 05:39 10/10/23 05:39 - TIME SPENT Time Spent in Discharge (Minutes): 35"
[2023-10-10 15:42] LABS: HCT - HEMATOCRIT 20.8 % (42.0-52.0)
[2023-10-10 15:44] LABS: HGB - HEMOGLOBIN 6.4 g/dL (14.0-18.0)
[2023-10-10] MEDS: FUROSEMIDE 20 MG/2 ML VIAL IVP PRN (16:50)
[2023-10-10 19:05] VITALS: BP 139/81; O2SAT 94
[2023-10-11] MEDS ORDERED: FOLIC ACID 1 MG TABLET PO SCH (09:00)
[2023-10-11] MEDS ORDERED: THIAMINE 100 MG TABLET PO SCH (09:00)
== END 2023-10-10 19:00 | disposition short-term general hospital (02) | DRG 812 ==
LOC: ED 17:29 → MS2 21:16 → ICU 10-10 08:09 → OBSVTOIN 10-10 12:26
PROVIDERS: ADMIT Hospitalist; ATTEND Family Medicine
PROC: 30233N1 Transfusion of Nonautologous Red Blood Cells into Peripheral Vein, Percutaneous Approach (ICD-10-PCS; principal; 2023-10-10)
DX: D62 Acute posthemorrhagic anemia (principal); K51.90 Ulcerative colitis, unspecified, without complications; K80.00 Calculus of gallbladder with acute cholecystitis without obstruction; F10.229 Alcohol dependence with intoxication, unspecified; K64.9 Unspecified hemorrhoids; F43.10 Post-traumatic stress disorder, unspecified; Y90.8 Blood alcohol level of 240 mg/100 ml or more; K70.31 Alcoholic cirrhosis of liver with ascites; I86.8 Varicose veins of other specified sites; K76.0 Fatty (change of) liver, not elsewhere classified; F32.A Depression, unspecified; F41.9 Anxiety disorder, unspecified; E61.1 Iron deficiency; R00.0 Tachycardia, unspecified; K70.11 Alcoholic hepatitis with ascites; D75.839 Thrombocytosis, unspecified
CPT/HCPCS: 36415; 36430; 70450; 74177; 80053; 80306; 81003; 82077; 82272; 83540; 83690; 83735; 84100; 84466; 85014; 85018; 85025; 85610; 86850; 86900; 86901; 86920; 87640; 96361; 96365; 96372; 96375; 99284; 99285; A9270; G0378; J2060; J2765; J3411; J7509; P9016; P9017; P9037; Q9967; 81001; 87086